=== PATIENT | female | born 1965 | race Caucasian/White ===

== ENCOUNTER 2017-08-30 21:52 | Emergency (ER) | payer OTHER ==
[~2017-08-30] VITALS: Ht 162.6 cm; Wt 55.4 kg
[2017-08-31 00:48] VITALS: BP 131/79
== END 2017-08-31 00:48 | disposition home or self-care (01) ==
LOC: EME 21:52
DX: R22.0 Localized swelling, mass and lump, head (principal); R11.0 Nausea; T41.45XA Adverse effect of unspecified anesthetic, initial encounter; Z98.890 Other specified postprocedural states; Z90.710 Acquired absence of both cervix and uterus; Z88.6 Allergy status to analgesic agent
CPT/HCPCS: 99281; 99285; J1200; J2930; J7030; S0028